=== PATIENT | male | born 1930 | race Caucasian/White ===

== ENCOUNTER 2018-05-02 12:34 | Observation (INO) ==
[2018-05-02 13:22] LABS: Basophils % 0.3 % (0.1-2.0); Eosinophils # 0.1 K/mm3 (0.0-0.4); Eosinophils % 0.5 % (0.1-12.0); Hematocrit 36.8 % (42.0-52.0); Hemoglobin 11.7 g/dL (14.1-18.0); Lymphocytes # 1.4 K/mm3 (0.7-4.5); Lymphocytes % 9.2 K/mm3 (10-50); Mean Corpuscular HGB Conc 31.7 g/dL (31.8-35.4); Mean Corpuscular Hemoglobin 29.6 pg (27.0-31.2); Mean Corpuscular Volume 93.4 fl (80-94); Mean Platelet Volume 7.5 fl (7.4-10.4); Monocytes # 0.8 K/mm3 (0.1-1.0); Monocytes % 5.3 % (1.7-9.3); Neutrophils % 84.8 % (37.0-80.0); Platelet Count 267 K/mm3 (142-424); Red Blood Count 3.94 M/mm3 (4.60-6.20); Red Cell Distribution Width 12.8 % (11.5-17.5); White Blood Count 15.3 K/mm3 (4.8-10.8)
[2018-05-02 13:36] LABS: Anion Gap 10.1 mEq/L (5-15); Blood Urea Nitrogen 26 mg/dL (7-18); Calcium 8.8 mg/dL (8.5-10.1); Carbon Dioxide 31 mmol/L (21.0-32.0); Chloride 103 mmol/L (98-107); Glucose 93 mg/dL (74-106); Potassium 5.1 mmoL/L (3.5-5.1); Sodium 139 mmol/L (136-145)
[2018-05-02 13:37] LABS: Eosinophils % 1 % (0-3); Lymphocytes % 7 % (10-50); Monocytes % 9 % (2-9); Neutrophils % 83 % (42-76); RBC Morphology Normal; Total Cells Counted 100
--- NOTE | 2018-05-02 14:13 | Emergency Department Note ---
ED Disposition Clinical Impression: COPD exacerbation, Acute bronchitis Disposition: Still a Patient Condition on Discharge: Fair - Critical Care Critical Care Time: No Attestation: On 05/02/18, the high probability of a clinically significant, sudden or life threatening deterioration of the following system(s) required my full and direct attention, intervention and personal management. The time I documented below is in addition to time spent performing reported procedures but includes the following listed in this critical care notation. Medical Decision Making - Trav Inquiry Pt receiving controlled substance: No Vital Signs: 05/02/18 12:42 05/02/18 14:04 Temperature 99.7 F H 99.6 F Temperature Source Oral Oral Pulse Rate [Left Radial] 76 73 Respiratory Rate 24 22 Blood Pressure [Right Arm] 105/57 127/60 Blood Pressure Mean [Right Arm] 73 82 Blood Pressure Source [Right Arm] Automatic Cuff Blood Pressure Position [Right Arm] Sitting 02 Sat by Pulse Oximetry 96 93 L Oxygen Delivery Method Nasal Cannula Nasal Cannula Oxygen Flow Rate (LPM) 2 2 - Lab Data Lab Results 05/02/18 13:20: WBC 15.3 H, RBC 3.94 L, Hgb 11.7 L, Hct 36.8 L, MCV 93.4, MCH 29.6, MCHC 31.7 L, RDW 12.8, Plt Count 267, MPV 7.5, Neut % (Auto) 84.8 H, Lymph % (Auto) 9.2 L, [place] % (Auto) 5.3, Eos % (Auto) 0.5, Baso % (Auto) 0.3, Neut # (Auto) 13.0 H, Lymph # (Auto) 1.4, [place] # (Auto) 0.8, Eos # (Auto) 0.1, Baso # (Auto) 0.0, Total Counted 100, Neutrophils % (Manual) 83 H, Lymphocytes % (Manual) 7 L, Monocytes % (Manual) 9, Eosinophils % (Manual) 1, Platelet Estimate Normal, RBC Morphology Normal 05/02/18 13:20: Sodium 139, Potassium 5.1, Chloride 103, Carbon Dioxide 31, Anion Gap 10.1, BUN 26 H, Creatinine 1.39 H, Estimated Creat Clear 35, Estimated GFR 48 L, Est GFR ( Amer) 58 L, Glucose 93, Calcium 8.8, Troponin I < 0.02 05/02/18 13:20: Lactate 1.3 05/02/18 13:20: B-Natriuretic Peptide 134 H Result diagrams: 05/02/18 13:20 05/02/18 13:20 Orders (Tests/Meds): ED MEDICATIONS Generic Name Dose Route Start Last Admin Trade Name Freq PRN Reason Stop Dose Admin Albuterol/Ipratropium 3 ml 05/02/18 20:00 Duoneb 3ml Neb IH 06/01/18 19:59 QIDRT FAUSTO Azithromycin 500 mg/ Sodium 250 mls @ 250 mls/hr 05/02/18 14:30 Chloride IV 05/16/18 14:29 Q24H FAUSTO Protocol Ceftriaxone Sodium 1 gm/ 50 mls @ 100 mls/hr 05/02/18 14:30 05/02/18 14:34 Sodium Chloride IV 05/16/18 14:29 100 mls/hr Q24H FAUSTO Administration Protocol Methylprednisolone Sodium Succinate 80 mg 05/02/18 14:30 05/02/18 14:34 Solu-Medrol 125mg/2ml Vial IV 06/01/18 14:29 80 mg Q8H FAUSTO Administration ORDERS Category Date Time Status XR chest 2V Stat Exams 05/02/18 12:52 Taken Blood Culture Stat Micro 05/02/18 13:20 Received ECG Request by /Roge Stat Y 05/02/18 12:52 Ordered - Radiology Data #1 Image(s): Chest Image Reviewed: Yes I reviewed the patient's radiology image COPD, scarring left lower lung. No acute infiltrates seen. - ECG Data Tracing #1 EKG interpreted by Benjy Zelaya MD: Rhythm: sinus Rate: 71 [place]: normal Ectopy: none Conduction: normal ST Segment Changes: none T Wave Changes: none Q Waves: none No evidence of acute ischemia or injury Normal electrocardiogram - Physician Consults Physician Consulted: Damian Time: 14:33 Reason -: Admission Comment/Response: Agrees to admit the patient to the hospital. We discussed the patient's clinical information, including history, exam, laboratory and radiology results and ED course. Per hospital procedure, I will write temporary bridge inpatient orders on the patient. Specific orders requested by the admitting physician: Antibiotics, steroids, nebulizer treatments. General Adult HPI - General Chief complaint: Shortness of Breath/Dyspnea Stated complaint: SOA Time Seen by Provider: 05/02/18 14:11 Mode of Arrival: Wheelchair Limitations: No Limitations Description of Symptoms (Recalled from ER Triage Doc. by RN): to ed per pvt car with c/o increasing sob, cough, chills starting this am. pt wears o2 2L at hs. cpta none - History of Present Illness HPI narrative: The patient states that he thinks he has pneumonia. He complains of increased shortness of breath, congestion in the chest, diffuse anterior pleuritic chest pain, chills. He says he cannot cough anything up. He has COPD and is on oxygen at home, 2 L. He has had 2 nebulizer treatments today. He is not on steroids at home. He is a former smoker, quit 50 years ago. - Related Data Home Medications Medication Instructions Recorded Confirmed aspirin 81 mg tablet,delayed 81 mg PO ONCE 02/03/18 05/02/18 release atorvastatin 40 mg tablet 40 mg PO ONCE 02/03/18 05/02/18 budesonide 0.25 mg/2 mL suspension 2 ml INHALATION Q12H 02/03/18 05/02/18 for nebulization cyclobenzaprine 10 mg tablet 10 mg PO TID 02/03/18 05/02/18 formoterol fumarate 20 mcg/2 mL 2 ml INHALATION Q12H 02/03/18 05/02/18 solution for nebulization isosorbide mononitrate ER 30 mg 30 mg PO QAM 02/03/18 05/02/18 tablet,extended release 24 hr montelukast 10 mg tablet 10 mg PO QPM 02/03/18 05/02/18 multivitamin,iq-dmsn-rcisyitn 1 tab PO QAM 02/03/18 05/02/18 tablet omeprazole magnesium 20 mg 20 mg PO ONCE 02/03/18 05/02/18 capsule,delayed release Allergies Allergy/AdvReac Type Severity Reaction Status Date / Time No Known Allergies Allergy Verified 05/02/18 13:15 [facility] History I have reviewed the patient's past medical history: Yes - Social History Smoking Status: Never smoker Alcohol Intake: never - Psychiatric History Expresses thoughts of harming self/others: None Suicide Plan Description: No Plan ROS Obtained: Yes All systems reviewed & no additional complaints - Constitutional Constitutional: Reports chills (Unknown if fever, states does not have thermometer) - Cardiovascular Cardiovascular: Reports chest pain, Denies edema - Respiratory Respiratory: Yes cough, Yes dyspnea, Yes wheezing Physical Exam - General General appearance: alert Comment: Mild respiratory distress. Tachypnea. Audible crackling with breathing, which he says is chronic from "bronchitis" (? bronchiectasis). - Head Head exam: atraumatic, normocephalic, normal inspection - Eye Eye exam: Present: normal appearance, PERRL, EOMI - ENT ENT exam: Present: normal exam, normal oropharynx, mucous membranes moist, TM's normal bilaterally, normal external ear exam - Neck Neck exam: Present: normal inspection, full ROM, trachea midline. Absent: meningismus, lymphadenopathy - Chest Chest inspection: Present: normal inspection, symmetric chest wall rise. Absent : tenderness - Respiratory Respiratory exam: Present: respiratory distress, other (Bilateral crackles) - Cardiovascular Cardiovascular exam: Present: regular rate, normal rhythm. Absent: JVD - Abdominal Exam Abdominal exam: Present: soft, normal bowel sounds. Absent: distention, tenderness, guarding - Extremities Exam Extremities exam: Present: normal inspection, full ROM, normal capillary refill. Absent: calf tenderness - Back Exam Back exam: Present: normal inspection. Absent: tenderness - Neurological Exam Neurological exam: Present: alert, oriented X3 - Psychiatric Psychiatric exam: Present: normal affect, normal mood - Skin Skin exam: Present: warm, dry, intact, normal color
--- NOTE | 2018-05-03 08:02 | H&P/Discharge Summary ---
General - General Admission date:: 05/02/18 Discharge date: 05/03/18 *Admission Date: 05/02/18 *Chief complaint: Shortness of breath with cough *History of present illness: 87-year-old male with COPD and bronchiectasis of the left lower lobe presented to the emergency department after onset of cough with shortness of breath when he awoke yesterday morning. Within a few hours of onset of symptoms patient presented to the ER when he did not respond to home nebulized treatments. In the ER he was evaluated and noted to be mildly tachypneic with abnormal breath sounds. Chest x-ray was felt to be stable and showing only chronic changes. Because of patient's significant underlying COPD for which she is oxygen dependent decision was made to admit the patient for observation. He was continued on antibiotics and nebs. [facility] History I have reviewed the patient's past medical history: Yes Medical History: Reports:: Cancer (prostate 2009), Hyperlipidemia Denies:: Diabetes Mellitus Type 1, Diabetes Mellitus Type 2 Other Surgeries: Yes: Cholecystectomy, Other (cataract and back surgery) - *Social History Educational Level: Attended High School Smoking Status: Never smoker Alcohol Intake: never Occupational Status: retired Housing: house Household Members: spouse, family - Psychiatric History Expresses thoughts of harming self/others: None Suicide Plan Description: No Plan *Family Hx:: Cancer, Diabetes, Heart Attack Review of Systems - Review of Systems Patient denies fevers or chills and endorses only shortness of breath and cough with minimal sputum production of a whitish yellow sputum which is his baseline and he did not have any chest pain Exam Vital signs and Labs for Last 24 Hours: Temp Pulse Resp BP Pulse Ox 98.0 F 88 16 132/60 94 L 05/03/18 07:33 05/03/18 07:33 05/03/18 07:33 05/03/18 07:33 05/03/18 07:33 Laboratory Results - last 24 hr 05/02/18 13:20: WBC 15.3 H, RBC 3.94 L, Hgb 11.7 L, Hct 36.8 L, MCV 93.4, MCH 29.6, MCHC 31.7 L, RDW 12.8, Plt Count 267, MPV 7.5, Neut % (Auto) 84.8 H, Lymph % (Auto) 9.2 L, [place] % (Auto) 5.3, Eos % (Auto) 0.5, Baso % (Auto) 0.3, Neut # (Auto) 13.0 H, Lymph # (Auto) 1.4, [place] # (Auto) 0.8, Eos # (Auto) 0.1, Baso # (Auto) 0.0, Total Counted 100, Neutrophils % (Manual) 83 H, Lymphocytes % (Manual) 7 L, Monocytes % (Manual) 9, Eosinophils % (Manual) 1, Platelet Estimate Normal, RBC Morphology Normal 05/02/18 13:20: Sodium 139, Potassium 5.1, Chloride 103, Carbon Dioxide 31, Anion Gap 10.1, BUN 26 H, Creatinine 1.39 H, Estimated Creat Clear 35, Estimated GFR 48 L, Est GFR ( Amer) 58 L, Glucose 93, Calcium 8.8, Troponin I < 0.02 05/02/18 13:20: Lactate 1.3 05/02/18 13:20: B-Natriuretic Peptide 134 H I & O for Last 24 hours: Intake & Output 04/30/18 05/01/18 05/02/18 05/03/18 11:59 11:59 11:59 11:59 Intake Total 250 / 250 Output Total 550 / 550 Balance -300 / -300 Weight 144 lb 7 oz Narrative: Patient is awake and alert sitting up in bed eating breakfast. He appears at baseline. He does have an audible rhonchus sound that can be heard from across the room when he breathes. He has no increased work of breathing. ENT exam reveals normal external ears and a moist oropharynx. Lungs have fair aeration with rales in the left base which are chronic from his bronchiectasis. No wheezing is auscultated. Heart has a regular rate and rhythm. Neurologically there is no deficit. Patient is oriented to person place and time and in good spirits Hospital Course Hospital Course: Patient was admitted and placed on antibiotics and aerosols. He turned around quickly which is a frequent occurrence when the patient will get ill as he usually presents within just a few hours of beginning to decompensate. He is ambulating about the room. He is not requiring any increased supplemental oxygen as he is on oxygen at home. Patient was discharged home to continue a course of antibiotics. He will follow-up in office later in the week Results Labs on day of discharge: Labs from last 24 hours 05/02/18 05/02/18 05/02/18 13:20 13:20 13:20 WBC RBC Hgb Hct MCV MCH MCHC RDW Plt Count MPV Neut % (Auto) Lymph % (Auto) [place] % (Auto) Eos % (Auto) Baso % (Auto) Neut # (Auto) Lymph # (Auto) [place] # (Auto) Eos # (Auto) Baso # (Auto) Total Counted Neutrophils % (Manual) Lymphocytes % (Manual) Monocytes % (Manual) Eosinophils % (Manual) Platelet Estimate RBC Morphology Sodium 139 Potassium 5.1 Chloride 103 Carbon Dioxide 31 Anion Gap 10.1 BUN 26 H Creatinine 1.39 H Estimated Creat Clear 35 Estimated GFR 48 L Est GFR ( Amer) 58 L Glucose 93 Lactate 1.3 Calcium 8.8 Troponin I < 0.02 B-Natriuretic Peptide 134 H 05/02/18 13:20 WBC 15.3 H RBC 3.94 L Hgb 11.7 L Hct 36.8 L MCV 93.4 MCH 29.6 MCHC 31.7 L RDW 12.8 Plt Count 267 MPV 7.5 Neut % (Auto) 84.8 H Lymph % (Auto) 9.2 L [place] % (Auto) 5.3 Eos % (Auto) 0.5 Baso % (Auto) 0.3 Neut # (Auto) 13.0 H Lymph # (Auto) 1.4 [place] # (Auto) 0.8 Eos # (Auto) 0.1 Baso # (Auto) 0.0 Total Counted 100 Neutrophils % (Manual) 83 H Lymphocytes % (Manual) 7 L Monocytes % (Manual) 9 Eosinophils % (Manual) 1 Platelet Estimate Normal RBC Morphology Normal Sodium Potassium Chloride Carbon Dioxide Anion Gap BUN Creatinine Estimated Creat Clear Estimated GFR Est GFR ( Amer) Glucose Lactate Calcium Troponin I B-Natriuretic Peptide DS: Diagnosis - Discharge Diagnosis (1) COPD exacerbation Status: Acute Discharge Medications - Medications for Discharge Home Medication List at Discharge: No Action multivitamin,zr-igkj-znbgqxez tablet 1 tab PO DAILY omeprazole magnesium 20 mg capsule,delayed release 20 mg PO HS isosorbide mononitrate ER 30 mg tablet,extended release 24 hr 30 mg PO DAILY budesonide 0.25 mg/2 mL suspension for nebulization 2 ml INHALATION Q12H atorvastatin 40 mg tablet 40 mg PO HS montelukast 10 mg tablet 10 mg PO HS aspirin 81 mg tablet,delayed release 81 mg PO DAILY formoterol fumarate 20 mcg/2 mL solution for nebulization 2 ml INHALATION Q12H Disposition Disposition: Home, Self-Care
== END 2018-05-03 08:55 | disposition home or self-care (01) ==
LOC: ER 12:34 → 2ND 12:34
PROVIDERS: ADMIT Family Medicine; ATTEND Family Medicine

== ENCOUNTER 2019-07-20 22:08 | Observation (INO) ==
[2019-07-20 22:47] LABS: Basophils % 0.2 % (0.1-2.0); Eosinophils # 0.1 K/mm3 (0.0-0.4); Eosinophils % 1.1 % (0.1-12.0); Hematocrit 36.9 % (42.0-52.0); Hemoglobin 11.9 g/dL (14.1-18.0); Lymphocytes # 2.8 K/mm3 (0.7-4.5); Lymphocytes % 29.3 % (10-50); Mean Corpuscular HGB Conc 32.1 g/dL (31.8-35.4); Mean Corpuscular Volume 96.6 fl (80-94); Monocytes # 0.6 K/mm3 (0.1-1.0); Monocytes % 6.2 % (1.7-9.3); Neutrophils # 6.1 K/mm3 (1.8-7.8); Neutrophils % 63.2 % (37.0-80.0); Platelet Count 275 K/mm3 (142-424); Red Blood Count 3.82 M/mm3 (4.60-6.20); Red Cell Distribution Width 12.6 % (11.5-17.5); White Blood Count 9.7 K/mm3 (4.8-10.8)
[2019-07-20 22:59] LABS: Chloride 103 mmol/L (98-107); Sodium 139 mmol/L (136-145)
--- NOTE | 2019-07-20 22:59 | Emergency Department Note ---
ED Disposition Clinical Impression: Vertigo, Renal insufficiency COPD (chronic obstructive pulmonary disease) Qualifiers: COPD type: unspecified COPD Qualified Code(s): J44.9 - Chronic obstructive pulmonary disease, unspecified Disposition: Admitted as Observation Condition on Discharge: Fair Referrals: Tino Carroll MD [Primary Care Provider] - - Critical Care Critical Care Time: No Attestation: On 07/20/19, the high probability of a clinically significant, sudden or life threatening deterioration of the following system(s) required my full and direct attention, intervention and personal management. The time I documented below is in addition to time spent performing reported procedures but includes the following listed in this critical care notation. Medical Decision Making - Medical Records Medical records reviewed: Yes: I reviewed the patient's medical records. - Trav Inquiry Pt receiving controlled substance: No Vital Signs: 07/20/19 22:20 07/20/19 23:09 07/20/19 23:10 Temperature 98.9 F Temperature Source Oral Pulse Rate 81 84 Pulse Rate [Right] 82 Respiratory Rate 22 Blood Pressure [Right Arm] 177/82 H Blood Pressure Mean [Right Arm] 113 Blood Pressure Source [Right Arm] Automatic Cuff Blood Pressure Position [Right Arm] Supine 02 Sat by Pulse Oximetry 89 L Oxygen Delivery Method Room Air - Lab Data Lab results reviewed: Yes: I reviewed the patient's lab results. Lab Results 07/20/19 22:25: WBC 9.7, RBC 3.82 L, Hgb 11.9 L, Hct 36.9 L, MCV 96.6 H, MCH 31.0, MCHC 32.1, RDW 12.6, Plt Count 275, MPV 8.0, Neut % (Auto) 63.2, Lymph % (Auto) 29.3, [place] % (Auto) 6.2, Eos % (Auto) 1.1, Baso % (Auto) 0.2, Neut # (Auto) 6.1, Lymph # (Auto) 2.8, [place] # (Auto) 0.6, Eos # (Auto) 0.1, Baso # (Auto) 0.0, ESR 50 H 07/20/19 22:25: Sodium 139, Potassium 4.9, Chloride 103, Carbon Dioxide 29, Anion Gap 11.9, BUN 32 H, Creatinine 1.48 H, Estimated Creat Clear 33, Estimated GFR 45 L, Est GFR ( Amer) 54 L, Glucose 126 H, Calcium 9.0, Total Bilirubin 0.3, AST 21, ALT 23, Alkaline Phosphatase 74, Troponin I < 0.02, C- Reactive Protein 0.8, Total Protein 7.7, Albumin 3.9, Globulin 3.8 H, Albumin/Globulin Ratio 1.0 L 07/20/19 22:25: Lactate 0.9 07/20/19 23:01: Specimen Source R/r, O2 % 3, ABG pH 7.36, ABG pCO2 46.2 H, ABG pO2 77.7 L, ABG HCO3 25.6, ABG Total CO2 27.1 H, ABG O2 Saturation 95, ABG Base Excess 0.2, [place] Test Y Result diagrams: 07/20/19 22:25 07/20/19 22:25 Orders (Tests/Meds): ED MEDICATIONS Generic Name Dose Route Start Last Admin Trade Name Freq PRN Reason Stop Dose Admin Sodium Chloride 1,000 mls @ 999 mls/hr 07/20/19 23:30 07/20/19 23:33 Sod Chlor 0.9% 1000ml Bag IV 07/21/19 00:30 999 mls/hr .Q1H1M FAUSTO Administration Discontinued Medications Generic Name Dose Route Start Last Admin Trade Name Freq PRN Reason Stop Dose Admin Albuterol/Ipratropium 3 ml 07/20/19 22:28 07/20/19 23:09 Duoneb 3ml Neb IH 07/20/19 22:29 3 ml ONCE ONE Administration Methylprednisolone Sodium Succinate 125 mg 07/20/19 22:27 07/20/19 23:14 Solu-Medrol 125mg/2ml Vial IV 07/20/19 22:28 125 mg ONCE ONE Administration ORDERS Category Date Time Status CT head/brain wo con Stat Cat Scan 07/20/19 22:28 Taken XR chest 2V Stat Exams 07/20/19 22:26 Taken UA [Urinalysis and Microscopic] Stat Lab 07/20/19 23:27 Ordered Blood Culture Stat Micro 07/20/19 22:30 Received Arterial Blood Gas Stat RT 07/20/19 22:29 Ordered - Radiology Data #1 Image(s): Chest Image Reviewed: Yes I reviewed the patient's radiology image Preliminary Findings: Abnormal (copd) - ECG Data Tracing #1 Normal Sinus Rhythm: Yes Ischemic changes: non-specific ST-T wave changes - Physician Consults Physician Consulted: marii Reason -: Admission - JUANI Score for Non-Stemi Age of Patient: 80-89 years old Heart Rate: 70-89 bpm Systolic Blood Pressure: 160-199 mmHg Serum Creatinine: 1.20-1.59 mg/dl CHF [place] Class: I-No CHF Other Risk Factors: None Non-Stemi Risk Score: 120 Resp/SOB HPI - General Chief Complaint: Shortness of Breath/Dyspnea Stated Complaint: Dizzy Time Seen by Provider: 07/20/19 22:30 Mode of Arrival: Wheelchair Source of Information: Patient, Relative, Medical Record Limitations: No Limitations Description of Symptoms (Recalled from ER Triage Doc. by RN): Pt states he has become more SOA today and Dizzy - History of Present Illness pt with sob and assoc dizzyness which started this pm about 1829 - no chest pain and inc sx with mov - pt w/o chest pain MD Complaint: shortness of breath Onset (ago): hour(s) Severity: moderate Consistency/Duration: intermittent Exacerbating factors: movement Known history of: COPD Associated symptoms: denies other symptoms Treatment prior to arrival: none - Related Data Home oxygen amount: 2 liters Home Medications Medication Instructions Recorded Confirmed aspirin 81 mg tablet,delayed 81 mg PO DAILY 02/03/18 02/02/19 release atorvastatin 40 mg tablet 40 mg PO HS 02/03/18 02/02/19 budesonide 0.25 mg/2 mL suspension 2 ml INHALATION Q12H 02/03/18 02/02/19 for nebulization formoterol fumarate 20 mcg/2 mL 2 ml INHALATION Q12H 02/03/18 02/02/19 solution for nebulization isosorbide mononitrate ER 30 mg 30 mg PO DAILY 02/03/18 02/02/19 tablet,extended release 24 hr montelukast 10 mg tablet 10 mg PO HS 02/03/18 02/02/19 multivitamin,uz-gsji-fewzcuyl 1 tab PO DAILY 02/03/18 02/02/19 tablet omeprazole magnesium 20 mg 20 mg PO HS 02/03/18 02/02/19 capsule,delayed release bethanechol chloride 10 mg tablet 10 mg PO BID 09/22/18 02/02/19 Tamsulosin HCl [Flomax 0.4mg 0.4 mg PO HS 02/01/19 02/02/19 capsule] Previous Rx's Medication Instructions Recorded Ondansetron [Zofran 4mg ODT] 4 mg PO Q8HP PRN #6 tab.jessicadis 09/08/18 Allergies Allergy/AdvReac Type Severity Reaction Status Date / Time No Known Allergies Allergy Verified 02/02/19 11:12 [facility] History - Hepatitis A Screen Drug use history?: No High risk sexual behaviors?: No History of sexually transmitted infection?: No Currently employed?: No Childcare worker?: No Do you have indoor plumbing?: Yes Do you have electricity?: Yes Attestation statement:: This patient has been screened for Hepatitis A risk factors. I have reviewed the patient's past medical history: Yes Medical History: Reports:: Cancer, Home Oxygen, Hyperlipidemia, Ulcer Denies:: Diabetes Mellitus Type 1, Diabetes Mellitus Type 2 Other Medical History: Reports: Radiation Therapy Other Surgeries: Yes: Cancer Surgery, Cholecystectomy, Other Amputation: No Fractures: No Comment: Cardiac stents, RT cataract surgery, back surgery - Social History Smoking Status: Former smoker Alcohol Intake: never Substance Use Type: denies use Occupational Status: retired Housing: house Household Members: spouse, family Family Hx:: Cancer, Diabetes, Heart Attack ROS Obtained: Yes All systems reviewed & no additional complaints - Constitutional Constitutional: Denies fever(s), Reports weakness - Eyes Eyes: Denies change in vision - ENT Ears, Nose, Mouth, and Throat: Denies sore throat - Cardiovascular Cardiovascular: Denies chest pain, Reports dyspnea - Respiratory Respiratory: Yes cough, Yes non-productive cough, No coughing up blood - Gastrointestinal Gastrointestingal: Denies: abdominal pain - Genitourinary Male Genitourinary: Denies hematuria - Musculoskeletal Musculoskeletal: Denies joint pain, Denies joint swelling - Integumentary/Breasts Skin/Breast: Denies rash - Neurologic Neurologic: Denies seizure-like activity Physical Exam - General General appearance: alert, in no apparent distress - Head Head exam: normocephalic - Eye Eye exam: Present: PERRL, EOMI. Absent: scleral icterus, nystagmus - ENT ENT exam: Present: mucous membranes dry - Neck Neck exam: Present: trachea midline - Respiratory Respiratory exam: Present: other (dec bs bilat ). Absent: respiratory distress - Cardiovascular Cardiovascular exam: Present: regular rate, systolic murmur, other (possible carotid bruit ) - Abdominal Exam Abdominal exam: Present: soft - Extremities Exam Extremities exam: Present: full ROM - Neurological Exam Neurological exam: Present: alert, oriented X3, CN II-XII intact - Psychiatric Psychiatric exam: Present: normal affect - Skin Skin exam: Absent: rash
[2019-07-20 23:00] LABS: Alanine Aminotransferase 23 U/L (12-78); Albumin Level 3.9 gm/dL (3.4-5.0); Alkaline Phosphatase 74 U/L (46-116); Anion Gap 11.9 mEq/L (5-15); Aspartate Amino Transferase 21 U/L (15-37); Bilirubin,Total 0.3 mg/dL (0.2-1.0); Blood Urea Nitrogen 32 mg/dL (7-18); C-Reactive Protein 0.8 mg/dL (0.0-0.9); Carbon Dioxide 29 mmol/L (21.0-32.0); Globulin 3.8 gm/dl (1.3-3.2); Glucose 126 mg/dL (74-106); Total Protein,Serum 7.7 gm/dL (6.4-8.2)
[2019-07-20 23:02] LABS: ABG Base Excess 0.2 mmol/L (-2.4-2.3); ABG HCO3 25.6 mmhg (22.0-26.0); ABG Oxygen Saturation 95 % (90-100); ABG PCO2 46.2 mmhg (35.0-45.0); ABG PH 7.36 mmol/L (7.35-7.45); ABG PO2 77.7 mmhg (80-100); ABG TCO2 27.1 mmhg (23-27)
[2019-07-20 23:03] LABS: Allen's Test Y; Oxygen 3 %
[2019-07-20 23:24] LABS: Erythrocyte Sedimentation Rate 50 mm/hr (0-20)
[2019-07-20 23:42] LABS: Microscopic, Urine URINE MICROSCOPIC (MICROSCOPIC)
[2019-07-20 23:44] LABS: Appearance,Urine CLEAR (Clear); Bilirubin,Urine Negative (Negative); Blood, Urine TRACE-L (Negative); Color,Urine YELLOW (Yellow); Glucose,Urine (UA) Negative (Negative); Ketones,Urine Negative (Negative); Leukocyte Esterase,Urine Negative (Negative); PH,Urine 5.5 (5.0-8.5); Protein,Urine Negative (Negative); Urobilinogen,Urine 0.2 EU/dl (0.2)
[2019-07-20 23:54] LABS: Bacteria,Urine Trace /lpf; Mucus,Urine Trace /lpf
--- NOTE | 2019-07-21 03:55 | Pharmacy Consult Notes ---
[facility] Pharmacy VTE Monitoring - Patient Demographics Admission date: 07/20/19 Report Date: 07/21/19 Time: 03:55 Allergies/Adverse Reactions: Patient Allergies No Known Allergies Allergy (Verified 02/02/19 11:12) Height: 1.68 m Weight: 65.856 kg Patient Problems: Current Active Problems COPD (chronic obstructive pulmonary disease) (Acute) Vertigo (Acute) Renal insufficiency (Acute) - VTE Risk Labs: VTE Related Lab Results Hgb 11.9 g/dL (14.1-18.0) L 07/20/19 22:25 Hct 36.9 % (42.0-52.0) L 07/20/19 22:25 Plt Count 275 K/mm3 (142-424) 07/20/19 22:25 BUN 32 mg/dL (7-18) H 07/20/19 22:25 Creatinine 1.48 mg/dL (0.70-1.30) H 07/20/19 22:25 Estimated Creat Clear 33 mL/min (50-200) 07/20/19 22:25 Was VTE Risk Assessment Performed: Yes VTE Risk Level: Low Risk Clinical Trial Participant: No - Prophylaxis VTE Prophylaxis Ordered?: Yes Types of VTE Prophylaxis: TEDS Knee High
[2019-07-21 06:49] LABS: Basophils % 0.1 % (0.1-2.0); Eosinophils % 0.1 % (0.1-12.0); Hematocrit 37.5 % (42.0-52.0); Hemoglobin 11.6 g/dL (14.1-18.0); Lymphocytes # 1.4 K/mm3 (0.7-4.5); Lymphocytes % 19.8 % (10-50); Mean Corpuscular HGB Conc 31.1 g/dL (31.8-35.4); Mean Platelet Volume 7.8 fl (7.4-10.4); Monocytes # 0.1 K/mm3 (0.1-1.0); Monocytes % 1.3 % (1.7-9.3); Neutrophils # 5.5 K/mm3 (1.8-7.8); Neutrophils % 78.8 % (37.0-80.0); Platelet Count 260 K/mm3 (142-424); Red Blood Count 3.82 M/mm3 (4.60-6.20); Red Cell Distribution Width 12.5 % (11.5-17.5)
[2019-07-21 06:51] LABS: Anion Gap 11.6 mEq/L (5-15); Calcium 9.1 mg/dL (8.5-10.1)
--- NOTE | 2019-07-21 07:12 | H&P/Discharge Summary ---
General - General Admission date:: 07/21/19 Discharge date: 07/21/19 *Admission Date: 07/20/19 *Chief complaint: Dizziness *History of present illness: 88-year-old male with COPD presented to the emergency department after acute onset of dizziness. Patient had an uneventful day yesterday with voting and other activities. Patient had already been at home and cleaned up for the evening. He sat down to eat his supper when he developed acute onset of dizziness. While he tried to let the dizziness passed it persisted and family encouraged him to come to the emergency department. In the emergency department he underwent evaluation and no cause for his dizziness was found. Due to the patient's persistent complaints of dizziness in the emergency department and fear of a fall at home patient was admitted for observation. He was given a single dose of meclizine in the emergency department. This morning patient reports dizziness has resolved at this time. He has been to the side of the bed to use the urinal but has not been out of bed otherwise. He denies dizziness worsening with changes in position. He did note some temporal headache that has been intermittent but is currently not present. He denies changes in vision. He denies any falls at home. [facility] History I have reviewed the patient's past medical history: Yes Medical History: Reports:: Cancer, Chronic Obstructive Pulmonary Disease (COPD) (With chronic respiratory failure), Home Oxygen, Hyperlipidemia, Ulcer Denies:: Diabetes Mellitus Type 1, Diabetes Mellitus Type 2 *Have you ever received a pneumonia vaccine?: Yes *Have you received a flu vaccine this season?: Yes Other Medical History: Reports: Cataracts, Radiation Therapy Other Surgeries: Yes: Cancer Surgery, Cholecystectomy, Other Amputation: No Fractures: No - *Social History Smoking Status: Former smoker Tobacco Type: cigarettes Alcohol Intake: never Substance Use Type: denies use *Occupational Status:: retired Housing: house Household Members: spouse, family *Travel in the last 8 weeks: None Family Hx:: Cancer, Diabetes, Heart Attack Review of Systems - Review of Systems Review of systems:: pertinent systems reviewed and negative unless documented below - Constitutional Denies body ache(s), Denies chills, Denies fever(s), Denies increased appetite, Denies lack of energy - *Cardiovascular Denies chest pain, Denies chest pain at rest, Denies irregular heart rhythm - *Respiratory Reports chest congestion (Chronic), Reports shortness of breath with activity (Chronic) - *Gastrointestinal Denies belching, Denies change in bowel habits - *Genitourinary Denies difficulty urinating, Denies painful urination - *Neurologic Reports dizziness, Denies seizure-like activity Exam Vital signs and Labs for Last 24 Hours: Temp Pulse Resp BP Pulse Ox 98.2 F 74 18 145/64 H 94 L 07/21/19 04:00 07/21/19 05:45 07/21/19 04:00 07/21/19 04:00 07/21/19 05:45 Laboratory Results - last 24 hr 07/20/19 22:25: WBC 9.7, RBC 3.82 L, Hgb 11.9 L, Hct 36.9 L, MCV 96.6 H, MCH 31.0, MCHC 32.1, RDW 12.6, Plt Count 275, MPV 8.0, Neut % (Auto) 63.2, Lymph % (Auto) 29.3, [place] % (Auto) 6.2, Eos % (Auto) 1.1, Baso % (Auto) 0.2, Neut # (Auto) 6.1, Lymph # (Auto) 2.8, [place] # (Auto) 0.6, Eos # (Auto) 0.1, Baso # (Auto) 0.0, ESR 50 H 07/20/19 22:25: Sodium 139, Potassium 4.9, Chloride 103, Carbon Dioxide 29, Anion Gap 11.9, BUN 32 H, Creatinine 1.48 H, Estimated Creat Clear 33, Estimated GFR 45 L, Est GFR ( Amer) 54 L, Glucose 126 H, Calcium 9.0, Total Bilirubin 0.3, AST 21, ALT 23, Alkaline Phosphatase 74, Troponin I < 0.02, C- Reactive Protein 0.8, Total Protein 7.7, Albumin 3.9, Globulin 3.8 H, Albumin/Globulin Ratio 1.0 L 07/20/19 22:25: Lactate 0.9 07/20/19 23:01: Specimen Source R/r, O2 % 3, ABG pH 7.36, ABG pCO2 46.2 H, ABG pO2 77.7 L, ABG HCO3 25.6, ABG Total CO2 27.1 H, ABG O2 Saturation 95, ABG Base Excess 0.2, [place] Test Y 07/20/19 23:30: Urine Color Yellow, Urine Appearance Clear, Urine pH 5.5, Ur Specific [place] 1.020, Urine Protein Negative, Urine Glucose (UA) Negative, Urine Ketones Negative, Urine Blood Trace-l, Urine Nitrate Negative, Urine Bilirubin Negative, Urine Urobilinogen 0.2, Ur Leukocyte Esterase Negative, Urine RBC 3-5, Urine WBC 3-5, Ur Squamous Epith Cells 3-5, Urine Bacteria Trace, Urine Mucus Trace 07/21/19 06:18: WBC 7.0 D, RBC 3.82 L, Hgb 11.6 L, Hct 37.5 L, MCV 98.0 H, MCH 30.5, MCHC 31.1 L, RDW 12.5, Plt Count 260, MPV 7.8, Neut % (Auto) 78.8, Lymph % (Auto) 19.8, [place] % (Auto) 1.3 L, Eos % (Auto) 0.1, Baso % (Auto) 0.1, Neut # (Auto) 5.5, Lymph # (Auto) 1.4, [place] # (Auto) 0.1, Eos # (Auto) 0.0, Baso # (Auto) 0.0 07/21/19 06:18: Sodium 142, Potassium 5.6 H, Chloride 107, Carbon Dioxide 29, Anion Gap 11.6, BUN 30 H, Creatinine 1.36 H, Estimated Creat Clear 34, Estimated GFR 49 L, Est GFR ( Amer) 60, Glucose 160 H D, Calcium 9.1, Magnesium 2.3 H I & O for Last 24 hours: Intake & Output 07/18/19 07/19/19 07/20/19 07/21/19 11:59 11:59 11:59 11:59 Intake Total 1232 / 1232 Output Total 550 / 550 Balance 682 / 682 Weight 145 lb 3 oz - Constitutional no acute distress - *Routine HEENT Exam Head: Present: normocephalic Eye: Present: EOMI ENT: Present: mucous membranes moist - *Routine Neck Exam Absent: JVD, carotid bruit - *Routine Respiratory Exam Comments: There are breath sounds with occasional scattered rhonchi that is his baseline - *Routine Cardiovascular Exam Present: RRR, Normal S1, Normal S2 - *Routine Abdominal Exam Present: soft, normoactive bowel sounds. Absent: tenderness - *Routine Extremities Exam Present: full ROM. Absent: clubbing, edema - *Routine Neurological Exam Absent: alert, oriented X3, CN II-XII intact, sensory deficit, motor deficit Hospital Course Hospital Course: Patient was admitted for observation and given a single dose of meclizine. After sleeping a short period of time on the morning of the the patient's dizziness seemed to have improved. He was observed until after lunch and when no dizziness recurred he was discharged home Results Labs on day of discharge: Labs from last 24 hours 07/21/19 07/21/19 07/20/19 06:18 06:18 23:30 WBC 7.0 D RBC 3.82 L Hgb 11.6 L Hct 37.5 L MCV 98.0 H MCH 30.5 MCHC 31.1 L RDW 12.5 Plt Count 260 MPV 7.8 Neut % (Auto) 78.8 Lymph % (Auto) 19.8 [place] % (Auto) 1.3 L Eos % (Auto) 0.1 Baso % (Auto) 0.1 Neut # (Auto) 5.5 Lymph # (Auto) 1.4 [place] # (Auto) 0.1 Eos # (Auto) 0.0 Baso # (Auto) 0.0 ESR Specimen Source O2 % ABG pH ABG pCO2 ABG pO2 ABG HCO3 ABG Total CO2 ABG O2 Saturation ABG Base Excess [place] Test Sodium 142 Potassium 5.6 H Chloride 107 Carbon Dioxide 29 Anion Gap 11.6 BUN 30 H Creatinine 1.36 H Estimated Creat Clear 34 Estimated GFR 49 L Est GFR ( Amer) 60 Glucose 160 H D Lactate Calcium 9.1 Magnesium 2.3 H Total Bilirubin AST ALT Alkaline Phosphatase Troponin I C-Reactive Protein Total Protein Albumin Globulin Albumin/Globulin Ratio Urine Color Yellow Urine Appearance Clear Urine pH 5.5 Ur Specific [place] 1.020 Urine Protein Negative Urine Glucose (UA) Negative Urine Ketones Negative Urine Blood Trace-l Urine Nitrate Negative Urine Bilirubin Negative Urine Urobilinogen 0.2 Ur Leukocyte Esterase Negative Urine RBC 3-5 Urine WBC 3-5 Ur Squamous Epith Cells 3-5 Urine Bacteria Trace Urine Mucus Trace 07/20/19 07/20/19 07/20/19 23:01 22:25 22:25 WBC RBC Hgb Hct MCV MCH MCHC RDW Plt Count MPV Neut % (Auto) Lymph % (Auto) [place] % (Auto) Eos % (Auto) Baso % (Auto) Neut # (Auto) Lymph # (Auto) [place] # (Auto) Eos # (Auto) Baso # (Auto) ESR Specimen Source R/r O2 % 3 ABG pH 7.36 ABG pCO2 46.2 H ABG pO2 77.7 L ABG HCO3 25.6 ABG Total CO2 27.1 H ABG O2 Saturation 95 ABG Base Excess 0.2 [place] Test Y Sodium 139 Potassium 4.9 Chloride 103 Carbon Dioxide 29 Anion Gap 11.9 BUN 32 H Creatinine 1.48 H Estimated Creat Clear 33 Estimated GFR 45 L Est GFR ( Amer) 54 L Glucose 126 H Lactate 0.9 Calcium 9.0 Magnesium Total Bilirubin 0.3 AST 21 ALT 23 Alkaline Phosphatase 74 Troponin I < 0.02 C-Reactive Protein 0.8 Total Protein 7.7 Albumin 3.9 Globulin 3.8 H Albumin/Globulin Ratio 1.0 L Urine Color Urine Appearance Urine pH Ur Specific [place] Urine Protein Urine Glucose (UA) Urine Ketones Urine Blood Urine Nitrate Urine Bilirubin Urine Urobilinogen Ur Leukocyte Esterase Urine RBC Urine WBC Ur Squamous Epith Cells Urine Bacteria Urine Mucus 07/20/19 22:25 WBC 9.7 RBC 3.82 L Hgb 11.9 L Hct 36.9 L MCV 96.6 H MCH 31.0 MCHC 32.1 RDW 12.6 Plt Count 275 MPV 8.0 Neut % (Auto) 63.2 Lymph % (Auto) 29.3 [place] % (Auto) 6.2 Eos % (Auto) 1.1 Baso % (Auto) 0.2 Neut # (Auto) 6.1 Lymph # (Auto) 2.8 [place] # (Auto) 0.6 Eos # (Auto) 0.1 Baso # (Auto) 0.0 ESR 50 H Specimen Source O2 % ABG pH ABG pCO2 ABG pO2 ABG HCO3 ABG Total CO2 ABG O2 Saturation ABG Base Excess [place] Test Sodium Potassium Chloride Carbon Dioxide Anion Gap BUN Creatinine Estimated Creat Clear Estimated GFR Est GFR ( Amer) Glucose Lactate Calcium Magnesium Total Bilirubin AST ALT Alkaline Phosphatase Troponin I C-Reactive Protein Total Protein Albumin Globulin Albumin/Globulin Ratio Urine Color Urine Appearance Urine pH Ur Specific [place] Urine Protein Urine Glucose (UA) Urine Ketones Urine Blood Urine Nitrate Urine Bilirubin Urine Urobilinogen Ur Leukocyte Esterase Urine RBC Urine WBC Ur Squamous Epith Cells Urine Bacteria Urine Mucus DS: Diagnosis - Discharge Diagnosis (1) Vertigo Status: Acute (2) COPD (chronic obstructive pulmonary disease) Status: Acute Discharge Plan - Patient Discharge Instructions ACTIVITY: Continue current activity DIET: continue same diet Patient Instructions: Vertigo, Chronic Obstructive Pulmonary Disease, DI for Chronic Obstructive Pulmonary Disease, Acute Renal Failure, DI for Vertigo - Follow up Plan Disposition: Home, Self-Skilled Nursing Medications: Home Medications Medication Instructions Recorded Confirmed Type aspirin 81 mg tablet,delayed 81 mg PO DAILY 02/03/18 02/02/19 History release atorvastatin 40 mg tablet 40 mg PO HS 02/03/18 02/02/19 History budesonide 0.25 mg/2 mL suspension 2 ml INHALATION Q12H 02/03/18 02/02/19 History for nebulization formoterol fumarate 20 mcg/2 mL 2 ml INHALATION Q12H 02/03/18 02/02/19 History solution for nebulization isosorbide mononitrate ER 30 mg 30 mg PO DAILY 02/03/18 02/02/19 History tablet,extended release 24 hr montelukast 10 mg tablet 10 mg PO HS 02/03/18 02/02/19 History multivitamin,[id number] 1 tab PO DAILY 02/03/18 02/02/19 History tablet omeprazole magnesium 20 mg 20 mg PO HS 02/03/18 02/02/19 History capsule,delayed release Ondansetron [Zofran 4mg ODT] 4 mg PO Q8HP PRN #6 tab.rapdis 09/08/1801/14 Rx bethanechol chloride 10 mg tablet 10 mg PO BID 09/22/18 02/02/19 History Tamsulosin HCl [Flomax 0.4mg 0.4 mg PO HS 02/01/19 02/02/19 History capsule] Prescriptions/Medication Reconciliation: Continued multivitamin,[id number] tablet 1 tab PO DAILY omeprazole magnesium 20 mg capsule,delayed release 20 mg PO HS isosorbide mononitrate ER 30 mg tablet,extended release 24 hr 30 mg PO DAILY budesonide 0.25 mg/2 mL suspension for nebulization 2 ml INHALATION Q12H atorvastatin 40 mg tablet 40 mg PO HS bethanechol chloride 10 mg tablet 10 mg PO BID montelukast 10 mg tablet 10 mg PO HS aspirin 81 mg tablet,delayed release 81 mg PO DAILY formoterol fumarate 20 mcg/2 mL solution for nebulization 2 ml INHALATION Q12H Ondansetron [Zofran 4mg ODT] 4 mg PO Q8HP PRN #6 tab.rapdis PRN Reason: Nausea Tamsulosin HCl [Flomax 0.4mg capsule] 0.4 mg PO HS - Problem Reconciliation Problems Reviewed?: Yes
--- NOTE | 2019-07-21 08:55 | Electrocardiograph Report ---
APPROVED REPORT Exam: Resting ECG HR:81 bpm ECG Measurements Heart Rate 81 AXES UT 132 P 78 QRSd 94 QRS 70 QT 392 T85 QTc 455 <Conclusion> Sinus rhythm with Motion Artifact Otherwise normal ECG Electronically signed by : Brent Rojas, 07/21/2019 08:55:05
== END 2019-07-21 14:09 | disposition home or self-care (01) ==
LOC: 2ND 22:08 → ER 22:08 → 2ND 07-21 00:05
PROVIDERS: ADMIT Family Medicine; ATTEND Family Medicine
CPT/HCPCS: 36415; 70450; 71020; 71046; 80048; 80053; 81001; 82803; 83605; 83735; 84484; 85025; 85651; 86140; 87040; 93005; 94640; 94761; 96365; 96375; 99284; G0378